=== PATIENT | female | born 2000 | race Two or more races ===

== ENCOUNTER 2025-01-06 22:26 | Emergency (ER) | payer MEDICAID ==
[~2025-01-06] VITALS: Ht 165.1 cm; Wt 79.8 kg
[2025-01-06 22:38] VITALS: BP 130/73; TEMP 98.2; O2SAT 99
[2025-01-06] MEDS ORDERED: IBUPROFEN 400 MG TABLET PO ONE (23:00)
== END 2025-01-06 23:00 | disposition left against medical advice (07) ==
LOC: ER 22:37
DX: F10.129 Alcohol abuse with intoxication, unspecified (principal); Y90.9 Presence of alcohol in blood, level not specified